=== PATIENT | female | born 1985 | race Caucasian/White ===

== ENCOUNTER 2017-12-31 06:43 | Day surgery (SDC) | payer OTHER ==
[2017-12-31 08:06] LABS: BASO # 0.1 K/uL (0.0-0.2); BASO % 1.3 % (0.0-2.0); EOS # 0.2 K/uL (0.0-0.7); EOS % 3.7 % (0.0-4.0); HEMOGLOBIN 11.9 g/dL (11.0-16.0); LYMPH # 1.6 K/uL (1.0-4.3); LYMPH % 31.2 % (20.0-40.0); MEAN CELL VOLUME 83.5 fL (81.0-99.0); MEAN CORPUSCULAR HEMOGLOBIN 28.9 pg (27.0-31.0); MEAN CORPUSCULAR HGB CONC 34.6 g/dL (33.0-37.0); MEAN PLATELET VOLUME 8.6 fL (7.2-11.7); MONO # 0.5 K/uL (0.0-0.8); MONO % 10.1 % (0.0-10.0); NEUT # 2.8 K/uL (1.8-7.0); NEUT % 53.7 % (50.0-75.0); NRBC % 0.1 % (0.0-2.0); RBC 4.1 Mil/uL (3.80-5.20); RED CELL DISTRIBUTION WIDTH 13.1 % (11.5-14.5); WHITE BLOOD COUNT 5.1 K/uL (4.8-10.8)
[2017-12-31] MEDS ORDERED: Propofol 10 mg/ml Inj (20 ML) ONE (09:52)
[2017-12-31] MEDS ORDERED: Lactated Ringer's 1,000 ML IV SCH (10:45)
[2017-12-31 12:27] VITALS: RESP 18; O2SAT 100
[2017-12-31 13:55] VITALS: BP 96/59; PULSE 69; TEMP 98
--- NOTE | 2017-12-31 16:39 | PCM.SURG1 ---
Surgeon's Initial Post Op Note - Surgeon's Notes Surgeon: dr escoto Continuous Linter Drier Operator: mpme Type of Anesthesia: General LMA, General Mask Anesthesia Administered By: dr upton Pre-Operative Diagnosis: 32 yr at 10week missed ab Operative Findings: see the op reort Post-Operative Diagnosis: same Operation Performed: suction d&c Specimen/Specimens Removed: poc. chromose Estimated Blood Loss: EBL {In ML}: 20 Blood Products Given: N/A Drains Used: No Drains Post-Op Condition: Good Date of Surgery/Procedure: 12/31/17 Time of Surgery/Procedure: 17:00
--- NOTE | 2018-01-01 06:04 | OP ---
PROCEDURE DATE: 12/31/2017 PREOPERATIVE DIAGNOSIS: A 32 years old 1, para 0 at 10 weeks' missed . POSTOPERATIVE DIAGNOSIS: A 32 years old 1, para 0 at 10 weeks' missed . SURGEON: Real Betancourt MD. CARGO SUPERVISOR: None. TYPE OF ANESTHESIA: General anesthesia. ANESTHESIOLOGIST: Sandoval Hernández MD. COMPLICATIONS: None. PROCEDURE PERFORMED: Suction dilation and curettage. ESTIMATED BLOOD LOSS: 20 mL. DESCRIPTION OF PROCEDURE: After informed consent was obtained, the patient was brought to the operating room, placed on the table where general anesthesia . Examination found the uterus to be 10 weeks' size. No pelvic or adnexal masses. Anterior lip of the cervix was grasped with a tenaculum. Gentle dilation of the cervix was done. A 6 and a 7-Irish was used to do a and sent to pathology. Then after that, sharp curettage was done and sent to pathology. done again. It was sent to the pathology. A part of the tissue was sent for chromosome. Tenaculum was taken out of the anterior lip of the cervix. The patient tolerated the procedure well. Lap, sponge, and instrument counts were correct x2. Real Betancourt MD
== END 2017-12-31 13:00 | disposition home or self-care (01) ==
LOC: C.SDS 06:43
PROVIDERS: ATTEND Obstetrics & Gynecology
DX: O02.1 Missed abortion (principal); Z3A.10 10 weeks gestation of pregnancy; O36.0910 Maternal care for other rhesus isoimmunization, first trimester, not applicable or unspecified
CPT/HCPCS: 36415; 59820; 85025; 86850; 86900; 88233; 88262; 88305; J1885; J2704; J2792; J3010